=== PATIENT | female | born 1955 | race Two or more races ===

== ENCOUNTER 2018-04-05 08:07 | Day surgery (SDC) | payer BC ==
[2018-04-01 15:06] VITALS: BMI 26.2
[~2018-04-05 08:07] MED LIST: DEXAMETHASONE SOD PHOSPHATE 10 MG/ML 1 ML VIAL IV ONE; HEPARIN SODIUM,PORCINE 5,000 UNIT/ML 1 ML VIAL SQ ONE; LACTATED RINGERS 1,000 ML IV SCH; MIDAZOLAM 2 MG/2 ML VIAL IV PRN; ONDANSETRON 4 MG/2 ML VIAL IVP ONE; SCOPOLAMINE 1.5MG/72HR PATCH TRANSDERM ONE; ceFAZolin IN SWFI 2 GM/20 ML SYRINGE IVP ONE; fentaNYL (PF) 50 MCG/ML 2 ML AMP IV PRN
[2018-04-05 08:28] VITALS: TEMP 97.6
--- NOTE | 2018-04-05 09:13 | P.GSHP ---
History of Present Illness H&P Date: 04/05/18 Chief Complaint: Right upper quadrant pain This is a 62-year-old female who's had complaints of right quadrant pain. Patient recently found have evidence of cholelithiasis. She presents today for laparoscopic cholecystectomy. Past Medical History Additional Past Medical History / Comment(s): MIGRAINE HEADACHE History of Any Multi-Drug Resistant Organisms: None Reported Past Surgical History: Hysterectomy Additional Past Surgical History / Comment(s): D&C Past Anesthesia/Blood Transfusion Reactions: Motion Sickness, Postoperative Nausea & Vomiting (PONV) Smoking Status: Never smoker - Past Family History Mother Family Medical History: No Reported History Medications and Allergies Home Medications Medication Instructions Recorded Confirmed Type No Known Home Medications [No 04/01/18 04/05/18 History Known Home Medications] Allergies Allergy/AdvReac Type Severity Reaction Status Date / Time oxycodone [From Percodan] Allergy SEVERE Verified 04/01/18 14:44 DISORIENTATION Surgical - Exam Vital Signs Temp Pulse Resp BP Pulse Ox 97.6 F 62 16 129/65 100 04/05/18 08:26 04/05/18 08:26 04/05/18 08:26 04/05/18 08:26 04/05/18 08:26 - General well developed, no distress - Eyes PERRL - ENT normal pinna - Neck no masses - Respiratory normal expansion - Cardiovascular Rhythm: regular - Abdomen Mild right upper quadrant tenderness Abdomen: soft Assessment and Plan Assessment: Cholelithiasis Right upper quadrant pain We'll perform laparoscopic cholecystectomy.
[2018-04-05] MEDS ORDERED: MIDAZOLAM 2 MG/2 ML VIAL ONE (09:32)
[2018-04-05] MEDS ORDERED: KETOROLAC 30 MG/ML 1 ML VIAL ONE (09:32)
[2018-04-05] MEDS ORDERED: NEOSTIGMINE 1 MG/ML 10 ML VIAL ONE (09:32)
[2018-04-05] MEDS ORDERED: PROPOFOL 10 MG/ML 20 ML VIAL IV ONE (09:32)
[2018-04-05] MEDS ORDERED: LIDOCAINE 1% INJ 10MG/ML (20 ML MDV) ONE (09:32)
[2018-04-05] MEDS ORDERED: GLYCOPYRROLATE 0.2 MG/ML 2 ML VIAL ONE (09:32)
[2018-04-05] MEDS ORDERED: fentaNYL (PF) 50 MCG/ML 2 ML AMP ONE (09:32)
[2018-04-05] MEDS ORDERED: SUCCINYLCHOLINE CHLORIDE 100 MG/5 ML SYR IV ONE (09:32)
[2018-04-05] MEDS ORDERED: ROCURONIUM BROMIDE 10 MG/ML 10 ML VIAL IV ONE (09:32)
[2018-04-05] MEDS ORDERED: BUPIVACAINE (PF) 0.5% 30 ML VIAL SQ ONE (09:58)
--- NOTE | 2018-04-05 10:39 | P.OP ---
Date of Procedure: 04/05/18 Preoperative Diagnosis: Cholelithiasis Postoperative Diagnosis: Cholelithiasis Chronic cholecystitis Procedure(s) Performed: Laparoscopic cholecystectomy Anesthesia: ANAND Surgeon: Jordy Puckett Estimated Blood Loss (ml): 5 Pathology: other (Gallbladder) Condition: stable Disposition: PACU Description of Procedure: The patient was placed on the operating table. The patient received a general endotracheal tube anesthesia. The patients abdomen was prepped and draped in the usual sterile fashion. Through an infraumbilical stab incision, the fascia of the anterior abdominal wall was grasped with a pair of Kochers and then the Veress needle was placed in the peritoneal cavity. Position of the Veress needle was confirmed with positive drop test. The abdomen was then insufflated. After adequate insufflation, the 10 mm trocar was placed in the peritoneal cavity. Following this the laparoscope was placed in the peritoneal cavity. The patient was placed in the head-up, right side up position and then a 5 mm trocar was placed in the right lateral and right subcostal position under direct visualization. A 8 mm trocar was placed in the epigastric position. The gallbladder was grasped in the fundus and infundibulum. Traction on the gallbladder was placed in the lateral and the cephalad positions. The triangle of Calot was visualized.. The cystic duct was bluntly dissected until the union of the cystic duct and common bile duct was seen. The cystic duct was then divided and sealed with the Harmonic scissors. A PDS Endoloop was then placed throughout the cystic duct stump. The cystic artery divided and sealed with the Harmonic scissors. The gallbladder was then removed from the liver bed using Harmonic scissors. The gallbladder was then extracted through the epigastric port site. Operative field was checked for any bleeding spots and Harmonic scissors was used to coagulate the liver bed. The abdomen was irrigated. The trocars were removed. The skin was closed using interrupted 3-0 Vicryl suture. Dermabond dressing were applied. The patient tolerated the procedure well.
[2018-04-05 11:03] VITALS: RESP 16
[2018-04-05] MEDS ORDERED: PROMETHAZINE INJ 25 MG/ML 1 ML VIAL IVPB ONE (11:35)
[2018-04-05 12:26] VITALS: BP 115/73; PULSE 71
== END 2018-04-05 12:45 | disposition home or self-care (01) ==
LOC: OR 08:07
PROVIDERS: ATTEND Surgery
DX: K80.10 Calculus of gallbladder with chronic cholecystitis without obstruction (principal); Z88.5 Allergy status to narcotic agent; Z86.69 Personal history of other diseases of the nervous system and sense organs
CPT/HCPCS: 88304; 47562; J2250; J1644; J1100; J2550; J2710; J2405; J2001; J3010; J1885; J0330; J2704; J0690